=== PATIENT | male | born 1940 | race Caucasian/White ===

== ENCOUNTER → 2023-07-31 08:32 | Outpatient (REF) | payer MEDICARE, OTHER, SELFPAY ==
[2023-07-31 11:29] LABS: Blood Urea Nitrogen 36 mg/dl (9-20); Calcium 9.1 mg/dl (8.4-10.2); Carbon Dioxide 26 mmol/L (22-30); Chloride 96 mmol/L (98-107); Glucose 134 mg/dl (70-99); Sodium 134 mmol/L (135-145); eGFR 54.17
== END ==
LOC: HWLAB 08:32
PROVIDERS: ATTENDING PHYSICIAN Internal Medicine Cardiovascular Disease; FAMILY PHYSICIAN Family Medicine
DX: I25.10 Atherosclerotic heart disease of native coronary artery without angina pectoris (principal)
CPT/HCPCS: 36415; 80048